=== PATIENT | female | born 1945 | race Caucasian/White ===

== ENCOUNTER 2021-12-26 08:49 | Day surgery (SDC) | payer MEDICARE, OTHER ==
[~2021-12-26] VITALS: Ht 152.4 cm; Wt 67.3 kg
[~2021-12-26 08:49] MED LIST: AMLO5TAB66 PO; CALC-1255 PO; CELE100C97 PO; CHOL200074 PO; HYDR200T4 PO; NINT150C PO; OMEG-108 PO; SODIUM CHLORIDE 0.9% 1,000 ML ONE
[2021-12-26] MEDS ORDERED: SODIUM CHLORIDE 0.9% 1,000 ML IV ONE (09:00)
[2021-12-26 09:34] LABS: COVID AG,FIA SOURCE NASAL SWAB
[2021-12-26] MEDS ORDERED: LIDOCAINE/PF 2% 5 ML VIAL IM ONE (12:00)
[2021-12-26] MEDS ORDERED: PROPOFOL 1% 20 ML VIAL IVP ONE (12:00)
== END 2021-12-26 12:20 | disposition home or self-care (01) ==
LOC: SURGERY 08:49
PROVIDERS: ATTEND Internal Medicine Gastroenterology
DX: Z12.11 Encounter for screening for malignant neoplasm of colon (principal); Z86.010 Personal history of colon polyps; E03.9 Hypothyroidism, unspecified; G47.00 Insomnia, unspecified; M81.0 Age-related osteoporosis without current pathological fracture; M13.0 Polyarthritis, unspecified; Z79.899 Other long term (current) drug therapy
CPT/HCPCS: G0105 ×6; J2704; J3490; J7030